=== PATIENT | male | born 1955 | race Caucasian/White ===

== ENCOUNTER 2017-04-22 20:30 | Outpatient (CLI) | payer BC | END 2017-04-22 20:31 | disposition home or self-care (01) | LOC: SLEEPLAB 20:30 | PROVIDERS: ATTEND Internal Medicine Pulmonary Disease | DX: G47.33 Obstructive sleep apnea (adult) (pediatric) (principal) | CPT/HCPCS: 95811 ==

== ENCOUNTER 2018-02-02 16:39 | Day surgery (SDC) | payer BC ==
[2018-02-02] MEDS ORDERED: CEFAZOLIN 1 GM in Sodium Chloride 0.9% 100 ML IVPB SCH (17:00)
[2018-02-02] MEDS ORDERED: CEFAZOLIN 1 GM VIAL ONE (17:34)
[2018-02-02] MEDS ORDERED: Sodium Chloride 0.9% 100 ML ONE (17:34)
[2018-02-02] MEDS ORDERED: Fentanyl 100 MCG/2 ML VIAL ONE ×2 (17:47)
[2018-02-02 17:48] LABS: #Eosinphils 0.2 thou/uL (0.0-0.7); #Monocytes 0.6 thou/uL (0.11-0.59); #Neutrophils 6.8 thou/uL (1.40-6.50); %Basophils 0.5 % (0.0-1.0); %Lymphocytes 11.7 % (21.0-51.0); %Monocytes 7.1 % (0.0-10.0); %Neutrophils 78.7 % (42.0-75.0); Hemoglobin 13.6 g/dL (14.0-18.0); Mean Corpuscular HGB CONC 35.1 g/dL (32.0-36.0); Mean Corpuscular Hemoglobin 36.5 pg (27.0-31.0); Mean Platelet Volume 6.6 fL (7.4-10.4); Platelet Count 238 thou/uL (130-400); RBC Distribution Width 11.7 % (11.5-14.5); Red Blood Cell (RBC) Count 3.73 mill/uL (4.70-6.10); White Blood Cell (WBC) Count 8.7 thou/uL (4.8-10.8)
[2018-02-02 17:54] LABS: INR-International Normal Ratio 1.3; PTT 41.6 SEC (22.9-36.1); Prothrombin Time 15.9 SEC (12.0-14.7)
[2018-02-02] MEDS ORDERED: Iothalamate Meglumine 60% 50 ML VIAL FS ONE (17:55)
[2018-02-02 18:09] LABS: Anion Gap 17 mmol/L (10-20); BUN (Urea Nitrogen) 52 mg/dL (8.4-25.7); Calc. Creatinine Clearance 0 mL/min (70-130); Calcium 9.7 mg/dL (7.8-10.44); Carbon Dioxide 17 mmol/L (22-29); Chloride 111 mmol/L (98-107); Estimated GFR-MDRD 12; Glucose 102 mg/dL (70-105); Potassium 4.8 mmol/L (3.5-5.1); Sodium 140 mmol/L (136-145)
--- NOTE | 2018-02-02 19:02 | RAD ---
RETROGRADE IVP 02/02/18 COMPARISON: 03/26/13. HISTORY: Cystoscopy. Previous left kidney stone. FINDINGS/IMPRESSION: Multiple limited intraoperative fluoroscopic views from retrograde IVP were submitted for interpretat ion. The initial image shows contrast in the left renal collecting system. No obvious calcification p rojects over the left kidney. The second image shows radiopaque material overlying the kidney which l ikely represents contrast. Eventually, a double-J ureteral stent is placed which appears in good posi tion. POS: [facility]
--- NOTE | 2018-02-03 02:14 | OP ---
DATE OF PROCEDURE: 02/02/2018 PREOPERATIVE DIAGNOSIS: Left renal failure. POSTOPERATIVE DIAGNOSIS: Left renal failure. PROCEDURE PERFORMED: Cystoscopy, left retrograde, left stents. SURGEON: Gilbert Marsh M.D. ANESTHESIA: General. ESTIMATED BLOOD LOSS: Not recorded. FINDINGS: He had a short wide caliber stricture of the bulb easily pass a 22-Japanese sheath. He had a moderately large prostate gland. The bladder was free of tumor, foreign body, or stone. There was no efflux in the left ureteral orifice. There was obstructing radiolucent stone in the proximal lef t ureter, a normal ureter distal to it. He was hydronephrotic above it. The urine was drained from this initially was about 20 mL of very dark bloody urine which then cleared with a fairly brisk hydro nephrotic drip. DRAINS PLACED: A 4.8 x 26 cm double-J stent. OPERATIVE TECHNIQUE: Obtained written and verbal consent from the patient after receiving a lower th an normal dose of IV Ancef because of his creatinine being 4.86. He was taken to the operating suite . He was placed in supine position on the treatment table. PlexiPulses were placed on his lower ext remities and turned on. He was given a general anesthetic and an oral intubation. He was then place d in the dorsal lithotomy position, sterilely prepped and draped. The fluoroscopy unit was brought o samantha him and he was positioned so as we can look at the left side of the abdomen from pelvis up to the ribs. He then underwent cystoscopy with a 22-Japanese sheath. This was well lubricated and passed un ab direct vision with 30-degree lens, video camera and monitor through the male urethra into the uri nary bladder with the findings above. The bladder was filled and emptied a couple of times and exami bar with both a 30 and a 70 degree lens. A 5 Japanese Pollack catheter was brought in and flushed with contrast half and half. It was placed about a centimeter into the left ureteral orifice and contras t was injected in a retrograde manner showing a normal distal ureter up to the proximal ureter where there was obstruction noted and the radiolucency when we placed the open-ended catheter up adjacent t o it. We were able to get contrast to go by it and were able to get a 0.038 guidewire to go by it. It was a little bit difficult getting the 5-Japanese Pollack catheter go by this, but was able to get i t by and then removed the wire and drained about maybe 25 mL of very dark bloody urine. It had no od or to it and was sent off for culture. We then were able to inject some contrast up in this system, which filled it out for as it was hydronephrotic. We replaced the guidewire, removed the open-ended catheter. We elected to go with a 4.8 double-J stent because of the difficulty in getting a 5-Japanese Pollack, past the stone, and I did not think I could get a 6-Japanese stent in. Wwe were able to fair ly easily get the 4.8 stent by the stone into the area of the renal pelvis. We removed the wire leav ing the proximal end of the stent coiled in the renal pelvis and distal stent coiled in the bladder d raining a slightly bloody urine. At this point, the patient's bladder was emptied. The instruments were removed. He was taken out of the dorsal lithotomy position and he was awakened and extubated an d taken by ricardo to recovery room.
== END 2018-02-02 20:30 | disposition home or self-care (01) ==
LOC: SDC 16:39
PROVIDERS: ATTEND Urology
PROC: 0T778DZ Dilation of Left Ureter with Intraluminal Device, Via Natural or Artificial Opening Endoscopic (ICD-10-PCS; principal; 2018-02-02)
DX: N13.2 Hydronephrosis with renal and ureteral calculous obstruction (principal); I12.9 Hypertensive chronic kidney disease with stage 1 through stage 4 chronic kidney disease, or unspecified chronic kidney disease; E11.22 Type 2 diabetes mellitus with diabetic chronic kidney disease; N18.9 Chronic kidney disease, unspecified; N40.0 Benign prostatic hyperplasia without lower urinary tract symptoms; E78.00 Pure hypercholesterolemia, unspecified; Z98.890 Other specified postprocedural states
CPT/HCPCS: 36415; 36416; 74420; 80048; 85025; 85610; 85730; 87070; 87205; C1758; J0690; J3010; J7050; Q9961

== ENCOUNTER 2018-02-08 07:11 | Day surgery (SDC) | payer BC ==
[2018-02-07 14:32] VITALS: BMI 38.9
[2018-02-08] MEDS ORDERED: CEFAZOLIN 1 GM VIAL ONE (07:50)
[2018-02-08] MEDS ORDERED: Sodium Chloride 0.9% 100 ML ONE (07:50)
[2018-02-08 08:07] LABS: Platelet Count 255 thou/uL (130-400)
[2018-02-08 08:17] LABS: INR-International Normal Ratio 1.2; Prothrombin Time 15.6 SEC (12.0-14.7)
[2018-02-08 08:18] LABS: PTT 38.6 SEC (22.9-36.1)
[2018-02-08 08:27] LABS: Anion Gap 13 mmol/L (10-20); BUN (Urea Nitrogen) 33 mg/dL (8.4-25.7); Calc. Creatinine Clearance 71 mL/min (70-130); Calcium 9.5 mg/dL (7.8-10.44); Carbon Dioxide 24 mmol/L (22-29); Chloride 107 mmol/L (98-107); Estimated GFR-MDRD 30; Glucose 190 mg/dL (70-105); Potassium 4.6 mmol/L (3.5-5.1); Sodium 139 mmol/L (136-145)
[2018-02-08] MEDS ORDERED: Iothalamate Meglumine 60% 50 ML VIAL FS ONE (08:36)
[2018-02-08] MEDS ORDERED: Fentanyl 100 MCG/2 ML VIAL ONE (08:48)
[2018-02-08] MEDS ORDERED: Ondansetron HCl/PF 4 MG/2 ML Vial ONE (09:52)
[2018-02-08] MEDS ORDERED: PROPOFOL 200 MG/20 ML VIAL ONE (09:52)
[2018-02-08] MEDS ORDERED: Dexamethasone 20 MG/5 ML VIAL ONE (09:52)
--- NOTE | 2018-02-08 12:17 | OP ---
DATE OF PROCEDURE: 02/08/2018 PREOPERATIVE DIAGNOSES: Left renal stone and left stent. POSTOPERATIVE DIAGNOSES: Left renal stone and left stent. PROCEDURE PERFORMED: Cysto, discontinue left stent, left retrograde pyelogram, left ESWL and stent r eplacement. SURGEON: Dr. Gilbert Marsh. ANESTHETIC: General. ESTIMATED BLOOD LOSS: Not recorded. FINDINGS: He has between an 8 and 1 cm stone that is now in the left upper pole calyceal system. It initially presented at the [facility] when he presented with pain and increasing creatinine. He had a sten t placed last week because of the rise of creatinine to almost 5. It was a radiolucent stone so we h ad to outline it with contrast. He was treated with total of 2500 shocks, 500 at level 5, 2000 at le fredy 4. A stent was replaced at the end, a 4.8 [place] x 26 cm with a string left exiting the urethral meatus. OPERATIVE TECHNIQUE: After documenting normal preoperative blood work and platelet function assay, mahesh schwartz was taken to the operating suite. He was placed in the supine position on the treatment table. Pl exiPulses were placed on his lower extremities and turned on. He was given a general anesthetic, ora l intubation, placed in the dorsal supine position and sterilely prepped and draped. Cystoscopy was performed with a 20-Citizen [place] sheath. This was well lubricated and passed under direct vision through t he male urethra and into the urinary bladder with the aid of a 30-degree lens, a video camera and mon itor. The bladder was examined with 30 and 70 lens. There was no abnormality noted except for the d istal end of the double-J stent being in the bladder. This was grasped with pair of flexible graspin g forceps, brought out to the urethral meatus and a guidewire was fed up, and it was removed over the guidewire. A 5 Citizen [place] Pollack catheter was advanced over the guidewire and the guidewire was remove d and contrast was injected. The stone was no longer in the ureter, but was found to be in the upper pole calyceal system. We then went ahead and passed a Nolasco catheter into the bladder, hooked up to a drainage bag. Blew up his balloon with 10 mL and secured the 5-[place]izen [place] Pollack catheter with a ilana k stitch. He was then returned to the supine position, coupled to the lithotripsy unit. The stone w as placed in treatment focal point. Periodically we injected a little contrast to reoutline the ston e. Shockwave therapy was commenced at a low kV and after a couple 100 shocks, a 5 minute pause was g iven. The kV was then slowly increased to 4 and we stayed on this until about 1500 shocks and then r aised the kV to 5 and then brought it back down to 4, 2000 shocks for the remaining 500. It did appe ar the stone had been fragmented well and spreading out and changing its shape we injected contrast. At the end of this part of the procedure he was returned to the supine position. The ureteral stent and Nolasco catheter removed. Cystoscopy was again performed with a 20 Citizen [place] sheath, well lubricated through the male urethra and into the urinary bladder with aid of a 30-degree lens. A 0.038 guidewi re was advanced up the left ureter. There was some blood as well as a number of stone fragments alre marissa in the floor of the bladder. A 5 [place] Pollack catheter was placed over the guidewire and about 5 mL of contrast were used to fill out the collecting system. Once this was visible the wire was re placed. The open-ended catheter, the open-ended catheter was removed and then the stent was placed o samantha the wire, pushing it up into place with aid of a pusher so its proximal end coiled in the renal p nathan and its distal end coiled in the bladder when the wire was removed. At this point, the patient was awakened and extubated and taken by stretcher to the recovery room.
== END 2018-02-08 12:15 | disposition home or self-care (01) ==
LOC: SDC 07:11
PROVIDERS: ATTEND Urology
PROC: 0T778DZ Dilation of Left Ureter with Intraluminal Device, Via Natural or Artificial Opening Endoscopic (ICD-10-PCS; principal; 2018-02-08)
PROC: 0TF4XZZ Fragmentation in Left Kidney Pelvis, External Approach (ICD-10-PCS; principal; 2018-02-08)
DX: N20.2 Calculus of kidney with calculus of ureter (principal); I12.9 Hypertensive chronic kidney disease with stage 1 through stage 4 chronic kidney disease, or unspecified chronic kidney disease; E11.22 Type 2 diabetes mellitus with diabetic chronic kidney disease; N18.9 Chronic kidney disease, unspecified; Z79.899 Other long term (current) drug therapy
CPT/HCPCS: 36415; 80048; 85576; 85610; 85730; C1758; J0690; J1100; J2405; J2704; J3010; J7050; Q9961

== ENCOUNTER 2018-02-17 07:50 | Inpatient (IN) | payer BC ==
[2018-02-17 08:27] LABS: #Basophils 0.1 thou/uL (0.0-0.2); #Eosinphils 0.1 thou/uL (0.0-0.7); #Lymphocytes 0.5 thou/uL (1.20-3.40); #Monocytes 1.5 thou/uL (0.11-0.59); #Neutrophils 15.1 thou/uL (1.40-6.50); %Basophils 0.5 % (0.0-1.0); %Eosinophils 0.4 % (0.0-10.0); %Lymphocytes 3.1 % (21.0-51.0); %Monocytes 8.8 % (0.0-10.0); %Neutrophils 87.2 % (42.0-75.0); Hemoglobin 13.2 g/dL (14.0-18.0); Mean Corpuscular HGB CONC 34.4 g/dL (32.0-36.0); Mean Platelet Volume 7.4 fL (7.4-10.4); Platelet Count 149 thou/uL (130-400); RBC Distribution Width 11.7 % (11.5-14.5); Red Blood Cell (RBC) Count 3.78 mill/uL (4.70-6.10); White Blood Cell (WBC) Count 17.3 thou/uL (4.8-10.8)
[2018-02-17 08:45] LABS: ALT (SGPT) 25 U/L (8-55); AST (SGOT) 16 U/L (5-34); Albumin 3.9 g/dL (3.5-5.0); Alkaline Phosphatase 63 U/L (40-150); Anion Gap 15 mmol/L (10-20); BUN (Urea Nitrogen) 32 mg/dL (8.4-25.7); Bilirubin, Total 1.7 mg/dL (0.2-1.2); Calc. Creatinine Clearance 0 mL/min (70-130); Calcium 9.1 mg/dL (7.8-10.44); Carbon Dioxide 20 mmol/L (22-29); Chloride 105 mmol/L (98-107); Estimated GFR-MDRD 29; Globulin 3.4 g/dL (2.4-3.5); Glucose 231 mg/dL (70-105); Potassium 4.4 mmol/L (3.5-5.1); Protein, Total 7.3 g/dL (6.0-8.3); Sodium 136 mmol/L (136-145)
--- NOTE | 2018-02-17 09:29 | RAD ---
PORTABLE CHEST 1 VIEW: Date: 02/17/18 Time: 0848 hours HISTORY: Fever. Generalized weakness. FINDINGS: The heart size is borderline. The lungs are expanded without lobar consolidation, pneumothoraces, fra nk pulmonary edema, or pleural effusions. IMPRESSION: No acute process. POS: [facility]
--- NOTE | 2018-02-17 09:31 | RAD ---
ABDOMEN 1 VIEW: Date: 02/17/18 HISTORY: 62-year-old male with history of fever and generalized weakness. FINDINGS: Left ureteral stent in place. Minimal gas and fecal material in the colon. No overt large or small gunner wel obstruction. Exam somewhat limited technically. IMPRESSION: Left ureteral stent. No overt bowel obstruction. No acute calculus, although calculus may well be obs cured by gas and fecal material in the colon, and some minimal air in the small bowel. POS: [facility]
[2018-02-17] MEDS ORDERED: cefTRIAXone\\ROCEPHIN 2 GM VIAL ONE (10:57)
--- NOTE | 2018-02-17 11:05 | CT ---
CT OF ABDOMEN AND PELVIS PERFORMED WITHOUT CONTRAST ENHANCEMENT: HISTORY: Fever and chills. History of left ureteral stent placement for kidney stones. Occasional left flank pain. FINDINGS: The lung bases show subsegmental atelectatic change in the left base, The liver and spleen show no focal abnormalities. The liver measures 23 cm in length. Spleen is ana lilia roximately 13 cm. Pancreas shows no mass or ductal dilatation. The gallbladder is mildly distended. There is some mild perinephric fat stranding involving the right kidney. However, in reviewing a study, this has a similar appearance on that examination. No right renal calculi. There is a lower pole left renal calculus measuring 7-8 mm. A left ureteral stent is in place. It is in good p osition. I do not see any obstruction or ureteral calculus. A small exophytic density involving the lower pole of the left kidney is not definitively assessed. It measures less than 1 cm in size. It does appear similar to the prior exam and may represent a small hemorrhagic cyst. There is no signi ficant periaortic or mesenteric adenopathy. Postoperative changes of the stomach are present. CT OF PELVIS PERFORMED WITHOUT CONTRAST ENHANCEMENT: Appendix is normal. The prostate is slightly prominent. Small pelvic lymph nodes do not appear sign ificantly enlarged. Review of osseous structures shows some mild arthritic changes of the spine. IMPRESSION: 1. Borderline liver and spleen size. The gallbladder is mildly distended but no stones identified. 2. A 7-8 mm nonobstructing lower pole left renal calculus. Left ureteral stent appears to be in goo d position. No signs of obstruction. 3. Sigmoid diverticulosis. 4. Postoperative changes of the stomach. POS: [facility]
[2018-02-17 11:11] LABS: Bilirubin Negative (Negative); Blood, Urine Large (Negative); Clarity CLOUDY (Clear); Glucose, Urine (Dipstick) Negative (Negative); Leukocyte Large (Negative); Nitrite Negative (Negative); Protein, Urine (Dipstick) 100 mg/dL (Neg-Trace); Urobilinogen 0.2 mg/dL (0.2-1.0); pH, Urine 5.5 (5.0-9.0)
[2018-02-17 11:14] LABS: Bacteria/HPF 4+ HPF (None Seen); Hyaline Casts/LPF 7-10 HYALINE CAST LPF (0-3 Hyaline); Squamous Epithelial None Seen HPF (0-3)
[2018-02-17 12:42] LABS: Lactic Acid 2.3 mmol/L (0.5-2.2)
--- NOTE | 2018-02-17 12:54 | HP ---
PRIMARY CARE PHYSICIAN: [facility] call admission. REASON FOR ADMISSION: Sepsis. HISTORY OF PRESENT ILLNESS: A 62-year-old male who has underlying history of hypertension, diabetes type 2, morbid obesity, dyslipidemia, who was recently underwent cystoscopy and left ureteral stent p lacement by Dr. Gilbert Marsh on 02/08/2018. This patient has a history of a left renal stone which was treated with a left ESWL therapy, previous left ureteral stent was removed and new stent was meghan zack. After that day procedure, the patient was discharged home. The patient was intermittently havi ng left-sided flank pain. He was doing great. He did not have any fever or chills up until last nig ht when he started having chills and fever. He was having more pain on the left side and that is why he came to emergency room for evaluation. In the emergency room, he was found with a temperature of 101.3. He was tachycardic with pulse 129. His blood pressure remained stable at 118/73. After cullen atment in the emergency room with 4 liters IV fluid, vancomycin, and Rocephin, the patient's pulse im proved to 92 and his blood pressure improved to 118/73. He was feeling much better. Dr. Maximo harding was notified from emergency room and he recommended to admit under Medicine Service. The patient denies any hematuria. He denies any dysuria. He denies any increased frequency. He den ies any abdominal pain, constipation, or diarrhea. He denies any dizziness or syncope. He denies an y cough, upper respiratory or lower respiratory symptoms. REVIEW OF SYSTEMS: Please see my HPI for pertinent positive and negative. All other review of syste m reviewed and negative except as mentioned in the HPI. Constitutional: Weight loss or gain, ability to conduct usual activities. Skin: Rash, itching. Eyes: Double vision, pain. ENT/Mouth: Nose bleeding, neck stiffness, pain, tenderness. Cardiovascular: Palpitations, dyspnea on exertion, orthopnea. Respiratory: Shortness of breath, wheezing, cough, hemoptysis, fever or night sweats. Gastrointestinal: Poor appetite, abdominal pain, heartburn, nausea, vomiting, constipation, or diarrhea. Genitourinary: Urgency, frequency, dysuria, nocturia. Musculoskeletal: Pain, swelling. Neurologic/Psychiatric: Anxiety, depression. Allergy/Immunologic: Skin rash, bleeding tendency. PAST MEDICAL HISTORY: Morbid obesity, hypertension, diabetes type 2, chronic kidney disease stage 4, nephrolithiasis. PAST SURGICAL HISTORY: Gastric band surgery and reversal, gastric sleeve surgery, cystoscopy and lef t ureteral stent removal as well as ESWL therapy and the left ureteral stent placement. PAST PSYCHIATRIC HISTORY: Reviewed and negative. SOCIAL HISTORY: The patient is and lives at home with his . No history of tobacco, alco hol or illicit drug abuse. FAMILY HISTORY: Diabetes common among several family members. No premature coronary artery disease, stroke or cancer in his family. ALLERGIES: No known drug allergy. CURRENT HOME MEDICATIONS: Tylenol #3 1-2 tablets q.6 hourly p.r.n., potassium citrate 10 mEq p.o. tw ice daily, losartan 25 mg p.o. daily, Macrobid 100 mg p.o. daily, Crestor 5 mg p.o. at bedtime, clona zepam 2 mg 2 tablets at bedtime. EMERGENCY ROOM COURSE: The patient is given 4 liters of IV fluid and vancomycin and Rocephin. CT of the abdomen and pelvis showing borderline liver and spleen, gallbladder distended 7-8 mm nonobs tructive lower pole left renal calculus, left ureteral stent in place. No obstruction, sigmoid diver ticulosis, postoperative changes of the stomach. SIGNIFICANT LABORATORY DATA: CBC: WBC 17.3, hemoglobin 13.2, platelet 149, MCV 102. BMP: Sodium 1 36, potassium 4.4, chloride 105, carbon dioxide 20, BUN 32, creatinine 2.32, glucose 231, calcium 9.1 . LFT: AST 16, ALT 25, alkaline phosphatase 63, albumin 3.9, lactic acid 3.7. Urinalysis suggestiv e of urinary tract infection. ASSESSMENT AND PLAN: 1. Complicated urinary tract infection. This patient has sepsis. He has leukocytosis, high grade f ever, tachycardia, meets sepsis criteria. Source of infection is urinary tract. He has a recent ins trumentation with ESWL therapy and stent placement. His urinalysis suggestive of urinary tract infec tion. Most likely this patient has complicated urinary tract infection. Urine culture and blood cul ture obtained in the emergency room. We will continue with broad-spectrum antibiotic therapy with va ncomycin and cefepime. I spoke with Dr. Marsh about this patient's admission. This patient will ne ed IV antibiotic therapy and follow up on culture result and then he will decide about removal of aubree nt. 2. Sepsis with lactic acidosis. The patient's blood pressure is stable and improved after 4 liters of fluid and his tachycardia also improved. At this point, the patient will require telemetry admiss ion for close monitoring. The patient is already on broad-spectrum antibiotic therapy and we will fo llow up on culture result. We will continue with IV fluid as well. 3. Diabetes type 2. We will continue with insulin as per sliding scale per protocol. Diabetic diet will be given. 4. Hypertension. We will continue losartan 25 mg p.o. daily when blood pressure permits. At this p oint, we will hold on this therapy because of relatively low blood pressure. 5. Dyslipidemia. We will continue Crestor 5 mg p.o. at bedtime. 6. Anxiety and depression. We will continue clonazepam 2 mg p.o. at bedtime. 7. Morbid obesity with dietary education given. Healthy lifestyle measures discussed with the patie nt. 8. Chronic kidney disease stage 4. The patient will be given IV fluid and we will monitor renal fun ction. 9. Macrocytosis. We will start folic acid and vitamin B12 therapy. 10. Deep venous thrombosis prophylaxis. Lovenox 30 mg subcutaneously daily. 11. Gastrointestinal prophylaxis, Pepcid 20 mg p.o. daily. CODE STATUS: The patient is FULL CODE. The patient's is surrogate decision maker. Disposition plan based on clinical course. We are expecting patient's stay in hospital more than 2 m idnights. Plan of care discussed with the patient and patient's at bedside in the emergency francisco arango
[2018-02-17 13:43] VITALS: BMI 39.6
[2018-02-17] MEDS ORDERED: Sodium Chloride 0.65% Nasal 44 ML BOT EA NARE PRN (14:06)
[2018-02-17] MEDS ORDERED: Milk Of Magnesia 30 ML UDCUP PO PRN (14:06)
[2018-02-17] MEDS ORDERED: Mag-Al 1200 mg/1200 mg/30 ML UDCUP PO PRN (14:06)
[2018-02-17] MEDS ORDERED: Dextrose 5% in Water 1,000 ML IV PRN (14:06)
[2018-02-17] MEDS ORDERED: Dextrose 50% Abboject 50 ML SYRINGE SLOW IVP PRN (14:06)
[2018-02-17] MEDS ORDERED: Eucerin (Mineral Oil/Petrolatum,White) 30 gm Jar TOP PRN (14:06)
[2018-02-17] MEDS ORDERED: Chloraseptic Spray 180 ml Bottle PO PRN (14:06)
[2018-02-17] MEDS ORDERED: hydrALAZINE 20 MG/ML VIAL SLOW IVP PRN (14:06)
[2018-02-17] MEDS ORDERED: Ondansetron ODT 4 MG TAB PO PRN (14:06)
[2018-02-17] MEDS ORDERED: Ondansetron HCl/PF 4 MG/2 ML Vial IVP PRN (14:06)
[2018-02-17] MEDS ORDERED: Diabetic Tussin 200 MG/10 ML UDCUP PO PRN (14:06)
[2018-02-17] MEDS ORDERED: Zolpidem Tartrate 5 MG TAB PO PRN (14:06)
[2018-02-17] MEDS ORDERED: Loratadine 10 MG TAB PO PRN (14:06)
[2018-02-17] MEDS ORDERED: Artificial Tears 18 DROP/0.9 ML EA EYE PRN (14:06)
[2018-02-17] MEDS ORDERED: Loperamide HCl 2 MG CAP PO PRN (14:06)
[2018-02-17] MEDS ORDERED: Senokot 8.6 MG TAB PO PRN (14:06)
[2018-02-17] MEDS: Sodium Chloride 0.9% 1,000 ML IV SCH ×2 (15:28→15:29)
[2018-02-17] MEDS: Cefepime 2 GM in Sodium Chloride 0.9% 100 ML IVPB SCH (15:29)
[2018-02-17] MEDS: Acetaminophen 325 MG TAB PO PRN ×2 (16:16→21:30)
[2018-02-17] MEDS: HumaLOG 300 UNITS/3 ML VIAL SC PRN ×2 (17:39→21:32)
--- NOTE | 2018-02-17 20:47 | CON ---
DATE OF CONSULTATION: 02/17/2018 HISTORY OF PRESENT ILLNESS: This is a 62-year-old white male I saw today 02/17/2018 in the emergency center prior to his admission to the hospital. He is a patient that had undergone a cystoscopy, lef t stent placement and then a left ESWL. The ESWL was done on the of this month. His creatinine had gone up dramatically when he had a proximal left ureteral stone and that is why the stent had be en placed on the . He has uric acid stones. Unfortunately, the radiolucent and KUBs do not real ly show them. He came in today to the ER because last night he started having fevers and chills. No t feeling well. In the emergency center, I believe he was afebrile. His white count was 17.3. His creatinine was 2.32, which is about stable for him. His creatinine was almost 5 before stent was put in and his creatinine a couple years ago was 2.6. He had blood cultures and urine cultures done. H is urinalysis showed greater than 50 white cells, 4+ bacteria, 7-10 red cells. He was started on cef epime and vancomycin. He also did receive Rocephin in the emergency center. His lactic acid was als o elevated. He had a chest x-ray that was clear. He had a noncontrast CT scan done that showed the stent to be in good position. I did not see any evidence of any stones in the ureter. I saw nothing to suggest an obvious renal abscess. He had a stone that appear smaller than the stone that was cullen ated. There were some stone fragments in the lower pole of the left kidney. PAST MEDICAL HISTORY: He has diabetes. He has chronic renal insufficiency. He has obesity, hyperte nsion. PAST SURGICAL HISTORY: Includes gastric procedure for weight loss with reversal and then gastric sle christopher surgery. He has had ESWLs before. ALLERGIES: He has no known drug allergies. MEDICATIONS: Had been taking Macrobid up until the time of him getting a fever, not taken any today. He also has been taking Tylenol No. 3 since the surgery off and on. He is on potassium citrate to help prevent uric acid stones. He is on losartan, Crestor, clonazepam. PHYSICAL EXAMINATION: GENERAL: He does not have any flank tenderness. ABDOMEN: Obese but nontender and soft. GENITOURINARY: Penis is without lesions. Testicles descended. There is nothing to suggest epididym itis. A prostate exam was not done. EXTREMITIES: Lower extremities reveal no clubbing, cyanosis or edema. He has no discomfort in the c ast to suggest a deep vein thrombosis. IMPRESSION: Fever with likely pyelonephritis secondary to the stent. It does not appear suggestive that the stent is not draining. He has had culture set up for both blood and urine. He has been sta rted empirically on antibiotics. We will adjust the antibiotics as his cultures return. I think wit h that stone in the lower pole of the kidney now that we can probably look at removing that stent in the next couple of days after he defervesces. Should his elevated white count persists or should he clinically worsen, then we can do a contrast study be sure he has not developed a renal abscess. I w ill follow along with you.
[2018-02-17] MEDS: Rosuvastatin 5 MG TAB PO SCH (21:30)
[2018-02-17] MEDS ORDERED: clonazePAM 1 MG TAB PO SCH (21:45)
[2018-02-18] MEDS: Sodium Chloride 0.9% 1,000 ML IV SCH ×5 (00:48→22:19)
[2018-02-18] MEDS: Cefepime 2 GM in Sodium Chloride 0.9% 100 ML IVPB SCH ×2 (02:26→15:56)
[2018-02-18] MEDS: Acetaminophen 325 MG TAB PO PRN ×2 (03:55→16:09)
[2018-02-18 05:36] LABS: Lactic Acid 1.7 mmol/L (0.5-2.2)
[2018-02-18 05:50] LABS: ALT (SGPT) 18 U/L (8-55); AST (SGOT) 17 U/L (5-34); Albumin 3.1 g/dL (3.5-5.0); Alkaline Phosphatase 63 U/L (40-150); Anion Gap 12 mmol/L (10-20); BUN (Urea Nitrogen) 30 mg/dL (8.4-25.7); Bilirubin, Total 0.7 mg/dL (0.2-1.2); Calc. Creatinine Clearance 74 mL/min (70-130); Calcium 7.5 mg/dL (7.8-10.44); Carbon Dioxide 18 mmol/L (22-29); Chloride 107 mmol/L (98-107); Estimated GFR-MDRD 31; Glucose 312 mg/dL (70-105); Potassium 4.2 mmol/L (3.5-5.1); Protein, Total 6.1 g/dL (6.0-8.3); Sodium 133 mmol/L (136-145)
[2018-02-18 07:33] LABS: #Eosinphils 0.2 thou/uL (0.0-0.7); #Monocytes 1.2 thou/uL (0.11-0.59); #Neutrophils 12.8 thou/uL (1.40-6.50); %Basophils 0.1 % (0.0-1.0); %Eosinophils 1.1 % (0.0-10.0); %Lymphocytes 6.7 % (21.0-51.0); %Monocytes 7.6 % (0.0-10.0); %Neutrophils 84.5 % (42.0-75.0); Hemoglobin 10.8 g/dL (14.0-18.0); MDiff Complete? YES; Macrocytosis SLIGHT = 6-15 cells (100X) (0-5/hpf); Mean Corpuscular HGB CONC 33.5 g/dL (32.0-36.0); Mean Corpuscular Hemoglobin 34.5 pg (27.0-31.0); Mean Platelet Volume 7.3 fL (7.4-10.4); PLT Morphology Comment Appears Decreased; Platelet Count 115 thou/uL (130-400); RBC Distribution Width 11.8 % (11.5-14.5); Red Blood Cell (RBC) Count 3.14 mill/uL (4.70-6.10); White Blood Cell (WBC) Count 15.1 thou/uL (4.8-10.8)
[2018-02-18] MEDS: Enoxaparin Sodium 30 MG/0.3 ML SYRINGE SC SCH (09:08)
[2018-02-18] MEDS: Saccharomyces boulardii 250 MG CAP PO SCH (09:09)
[2018-02-18] MEDS: Cyanocobalamin (Vitamin B-12) 1,000 MCG TAB PO SCH (09:09)
[2018-02-18] MEDS: Tamsulosin HCl 0.4 MG CAP PO SCH (09:09)
[2018-02-18] MEDS: Folic Acid 1 MG TAB PO SCH (09:09)
[2018-02-18] MEDS: Famotidine 20 MG TAB PO SCH (09:09)
[2018-02-18] MEDS: HYDROcodone/Acetaminophen 5/325 mg Tablet PO PRN ×3 (09:10→21:56)
--- NOTE | 2018-02-18 10:02 | PDOC.PN ---
- Subjective Encounter Start Date: 02/18/18 Encounter Start Time: 07:30 -: old records requested/rev pt has left side flank pain, has fever, - Objective Resuscitation Status: Resuscitation Status FULL:Full Resuscitation MAR Reviewed: Yes Vital Signs & Weight: Vital Signs (12 hours) Temp Pulse Resp BP Pulse Ox 02/18/18 07:16 98.2 F 83 18 139/61 97 02/18/18 04:20 99.4 F 02/18/18 03:35 100.8 F H 94 18 121/58 L 97 02/18/18 00:00 99.7 F H 89 18 107/58 L 94 L Weight Weight 329 lb 9.6 oz I&O: 02/17/18 02/18/18 02/19/18 06:59 06:59 06:59 Intake Total 2718 Output Total 1994 Balance 723 Result Diagrams: 02/18/18 04:37 02/18/18 04:37 Additional Labs: Accuchecks 02/18/18 02/17/18 02/17/18 05:39 20:49 16:36 POC Glucose 312 H 322 H 348 H EKG Reviewed by me: Yes (nsr) Phys Exam - Physical Examination Constitutional: NAD HEENT: PERRLA, moist MMs, sclera anicteric Neck: no JVD, supple Respiratory: no wheezing, no rales, no rhonchi Cardiovascular: RRR, no significant murmur, no rub Gastrointestinal: soft, non-tender, no distention, positive bowel sounds Musculoskeletal: no edema, pulses present Neurological: non-focal, normal sensation, moves all 4 limbs Psychiatric: normal affect, A&O x 3 Skin: no rash, normal turgor Dx/Plan (1) Acute worsening of stage 3 chronic kidney disease Code(s): N18.3 - CHRONIC KIDNEY DISEASE, STAGE 3 (MODERATE) Status: Acute (2) Complicated UTI (urinary tract infection) Code(s): N39.0 - URINARY TRACT INFECTION, SITE NOT SPECIFIED Status: Acute (3) Lactic acidosis Code(s): E87.2 - ACIDOSIS Status: Acute (4) Sepsis Code(s): A41.9 - SEPSIS, UNSPECIFIED ORGANISM Status: Acute (5) Thrombocytopenia Code(s): D69.6 - THROMBOCYTOPENIA, UNSPECIFIED Status: Acute (6) Diabetes type 2, controlled Code(s): E11.9 - TYPE 2 DIABETES MELLITUS WITHOUT COMPLICATIONS Status: Chronic (7) Hypertension Code(s): I10 - ESSENTIAL (PRIMARY) HYPERTENSION Status: Chronic (8) Macrocytic anemia Code(s): D53.9 - NUTRITIONAL ANEMIA, UNSPECIFIED Status: Chronic (9) Morbid obesity with BMI of 40.0-44.9, adult Code(s): E66.01 - MORBID (SEVERE) OBESITY DUE TO EXCESS CALORIES; Z68.41 - BODY MASS INDEX (BMI) 40.0-44.9, ADULT Status: Chronic (10) [place] on CPAP Code(s): G47.33 - OBSTRUCTIVE SLEEP APNEA (ADULT) (PEDIATRIC); Z99.89 - DEPENDENCE ON OTHER ENABLING MACHINES AND DEVICES Status: Chronic - Plan cont current plan of care, continue antibiotics * continue vancomycin, cefepime and levaquin * follow on culture result * urology on case * medication reviewed as below * symptomatic treatment * continue IVF * start humalog 10 unit achs * some improvement seen so far Review of Systems - Review of Systems Constitutional: fever. negative: chills, sweats, weakness, malaise, other ENT: negative: Ear Pain, Ear Discharge, Nose Pain, Nose Discharge, Nose Congestion, Mouth Pain, Mouth Swelling, Throat Pain, Throat Swelling, Other Respiratory: negative: Cough, Dry, Shortness of Breath, Hemoptysis, SOB with Excertion, Pleuritic Pain, Sputum, Wheezing Cardiovascular: negative: chest pain, palpitations, orthopnea, paroxysmal nocturnal dyspnea, edema, light headedness, other Gastrointestinal: negative: Nausea, Vomiting, Abdominal Pain, Diarrhea, Constipation, Melena, Hematochezia, Other Genitourinary: negative: Dysuria, Frequency, Incontinence, Hematuria, Retention , Other Musculoskeletal: negative: Neck Pain, Shoulder Pain, Arm Pain, Back Pain, Hand Pain, Leg Pain, Foot Pain, Other - Medications/Allergies Allergies/Adverse Reactions: Allergies Allergy/AdvReac Type Severity Reaction Status Date / Time No Known Allergies Allergy Verified 02/17/18 13:52 Medications: Current Medications Acetaminophen (Tylenol) 650 mg PO Q4H PRN PRN Reason: Headache/Fever or Pain Last Admin: 02/18/18 03:55 Dose: 650 mg Hydrocodone Bitart/Acetaminophen ([place] 5/325) 1 tab PO Q4H PRN PRN Reason: Moderate Pain (4-6) Last Admin: 02/18/18 09:10 Dose: 1 tab Al Hydroxide/Mg Hydroxide (Maalox) 30 ml PO Q6H PRN PRN Reason: Heartburn or Indigestion Alogliptin Benzoate (Alogliptin) 25 mg PO QPM [facility] Artificial Tears (Tears Naturale) 0 drop EA EYE PRN PRN PRN Reason: Dry Eyes Clonazepam (Klonopin) 4 mg PO HS [facility] Cyanocobalamin (Vitamin B-12) 1,000 mcg PO DAILY [facility] Last Admin: 02/18/18 09:09 Dose: 1,000 mcg Dextrose/Water (Dextrose 50%) 25 gm SLOW IVP PRN PRN PRN Reason: Hypoglycemia Diphenhydramine HCl (Benadryl) 25 mg PO HS [facility] Enoxaparin Sodium (Lovenox) 30 mg SC 0900 [facility] Last Admin: 02/18/18 09:08 Dose: 30 mg Famotidine (Pepcid) 20 mg PO DAILY [facility] Last Admin: 02/18/18 09:09 Dose: 20 mg Folic Acid (Folvite) 1 mg PO DAILY [facility] Last Admin: 02/18/18 09:09 Dose: 1 mg Glucagon (Glucagon) 1 mg IM PRN PRN PRN Reason: Hypoglycemia Guaifenesin (Robitussin Sf) 200 mg PO Q4H PRN PRN Reason: Cough Hydralazine HCl (Apresoline) 10 mg SLOW IVP Q4H PRN PRN Reason: Systolic BP > 180 Sodium Chloride (Normal Saline 0.9%) 1,000 mls @ 125 mls/hr IV .Q8H [facility] Last Admin: 02/18/18 00:55 Dose: 1,000 mls Cefepime HCl 2 gm/ Sodium (Chloride) 100 mls @ 200 mls/hr IVPB 0300,1500 [facility] Last Admin: 02/18/18 02:26 Dose: 100 mls Dextrose/Water (D5w) 1,000 mls @ 0 mls/hr IV .Q0M PRN PRN Reason: Hypoglycemia Vancomycin HCl 2 gm/ Sodium (Chloride) 500 mls @ 250 mls/hr IVPB 1400 [facility] Insulin Human Lispro (Humalog) 0 units SC .MODERATE SLIDING SC PRN PRN Reason: Moderate Correctional Scale Last Admin: 02/17/18 17:39 Dose: 8 unit Insulin Human Lispro (Humalog) 0 units SC .BEDTIME SLIDING SC PRN PRN Reason: Bedtime Correctional Scale Last Admin: 02/17/18 21:32 Dose: 4 unit Insulin Human Lispro (Humalog) 10 units SC ACHS [facility] Loperamide HCl (Imodium) 2 mg PO PRN PRN PRN Reason: Diarrhea/Loose Stools Loratadine (Claritin) 10 mg PO DAILYPRN PRN PRN Reason: Sinus Symptoms Magnesium Hydroxide (Milk Of Magnesium) 30 ml PO DAILYPRN PRN PRN Reason: Constipation Mineral Oil/White Petrolatum (Eucerin Cream) 0 gm TOP BIDPRN PRN PRN Reason: Dry Skin Miscellaneous Medication (Pharmacy To Dose) 1 each IVPB PRN PRN PRN Reason: Pharmacy to dose Ondansetron HCl (Zofran Odt) 4 mg PO Q6H PRN PRN Reason: Nausea/Vomiting Ondansetron HCl (Zofran) 4 mg IVP Q6H PRN PRN Reason: Nausea/Vomiting Phenol (Chloraseptic [place] 180 Ml Bot) 0 ml PO PRN PRN PRN Reason: Sore Throat Rosuvastatin Calcium (Crestor) 5 mg PO [facility] Last Admin: 02/17/18 21:30 Dose: 5 mg Saccharomyces Boulardii (Florastor) 250 mg PO DAILY [facility] Last Admin: 02/18/18 09:09 Dose: 250 mg Senna (Senokot) 2 tab PO HSPRN PRN PRN Reason: Constipation Sodium Chloride ([place] Nasal [place] 0.65%) 0 ml EA NARE QIDPRN PRN PRN Reason: Nasal Congestion Sodium Chloride (Flush - Normal Saline) 10 ml IVF Q12HR MOE Sodium Chloride (Flush - Normal Saline) 10 ml IVF PRN PRN PRN Reason: Saline Flush Tamsulosin HCl (Flomax) 0.4 mg PO DAILY [facility] Last Admin: 02/18/18 09:09 Dose: 0.4 mg Zolpidem Tartrate (Ambien) 5 mg PO HSPRN PRN PRN Reason: Insomnia
[2018-02-18] MEDS: HumaLOG 300 UNITS/3 ML VIAL SC SCH ×3 (11:01→21:57)
[2018-02-18] MEDS: HumaLOG 300 UNITS/3 ML VIAL SC PRN ×3 (11:10→22:03)
[2018-02-18 14:33] LABS: Vancomycin, Trough 5.8 ug/mL
[2018-02-18] MEDS ORDERED: Non-Formulary Item 1 EACH (Linagliptin [Tradjenta] 5 MG) PO SCH (21:00)
[2018-02-18] MEDS: Rosuvastatin 5 MG TAB PO SCH (21:56)
[2018-02-18] MEDS: diphenhydrAMINE 25 MG CAP PO SCH (21:56)
[2018-02-18] MEDS: Alogliptin 25 MG TAB PO SCH (21:56)
[2018-02-18] MEDS: clonazePAM 1 MG TAB PO SCH (21:56)
[2018-02-19] MEDS: Cefepime 2 GM in Sodium Chloride 0.9% 100 ML IVPB SCH (02:09)
[2018-02-19 05:23] LABS: #Eosinphils 0.3 thou/uL (0.0-0.7); #Lymphocytes 0.9 thou/uL (1.20-3.40); #Monocytes 0.8 thou/uL (0.11-0.59); #Neutrophils 7.9 thou/uL (1.40-6.50); %Basophils 0.1 % (0.0-1.0); %Lymphocytes 9.2 % (21.0-51.0); %Neutrophils 79.6 % (42.0-75.0); Hemoglobin 9.9 g/dL (14.0-18.0); Mean Corpuscular HGB CONC 33.6 g/dL (32.0-36.0); Mean Corpuscular Hemoglobin 34.7 pg (27.0-31.0); Mean Platelet Volume 7.8 fL (7.4-10.4); Platelet Count 115 thou/uL (130-400); RBC Distribution Width 11.7 % (11.5-14.5); Red Blood Cell (RBC) Count 2.86 mill/uL (4.70-6.10); White Blood Cell (WBC) Count 9.9 thou/uL (4.8-10.8)
[2018-02-19 05:39] LABS: Anion Gap 12 mmol/L (10-20); BUN (Urea Nitrogen) 28 mg/dL (8.4-25.7); Calc. Creatinine Clearance 79 mL/min (70-130); Carbon Dioxide 19 mmol/L (22-29); Chloride 109 mmol/L (98-107); Estimated GFR-MDRD 33; Glucose 225 mg/dL (70-105); Phosphorus 2.2 mg/dL (2.3-4.7); Potassium 3.9 mmol/L (3.5-5.1); Sodium 136 mmol/L (136-145)
[2018-02-19] MEDS: Sodium Chloride 0.9% 1,000 ML IV SCH (08:48)
[2018-02-19] MEDS: Folic Acid 1 MG TAB PO SCH (08:49)
[2018-02-19] MEDS: Cyanocobalamin (Vitamin B-12) 1,000 MCG TAB PO SCH (08:49)
[2018-02-19] MEDS: Enoxaparin Sodium 30 MG/0.3 ML SYRINGE SC SCH (08:49)
[2018-02-19] MEDS: HYDROcodone/Acetaminophen 5/325 mg Tablet PO PRN ×3 (08:49→21:30)
[2018-02-19] MEDS: Famotidine 20 MG TAB PO SCH (08:49)
[2018-02-19] MEDS: Tamsulosin HCl 0.4 MG CAP PO SCH (08:49)
[2018-02-19] MEDS: Saccharomyces boulardii 250 MG CAP PO SCH (08:49)
[2018-02-19] MEDS: HumaLOG 300 UNITS/3 ML VIAL SC SCH ×4 (09:57→21:32)
--- NOTE | 2018-02-19 10:00 | PDOC.PN ---
- Subjective Encounter Start Date: 02/19/18 Encounter Start Time: 08:00 Patient seen and examined. No new complaints. No overnight events - Objective Resuscitation Status: Resuscitation Status FULL:Full Resuscitation MAR Reviewed: Yes Vital Signs & Weight: Vital Signs (12 hours) Temp Pulse Resp BP Pulse Ox 02/19/18 07:39 98.2 F 87 21 H 130/62 95 02/19/18 03:45 98.9 F 88 12 125/61 91 L 02/18/18 23:22 99.8 F H 86 14 101/55 L 92 L Weight Weight 330 lb 9.6 oz I&O: 02/18/18 02/19/18 02/20/18 06:59 06:59 06:59 Intake Total 2717 6290 Output Total 1994 1999 Balance 723 4290 Result Diagrams: 02/19/18 04:42 02/19/18 04:42 Additional Labs: Accuchecks 02/19/18 02/18/18 02/18/18 05:58 20:12 16:38 POC Glucose 205 H 235 H 331 H 02/18/18 10:44 POC Glucose 355 H EKG Reviewed by me: Yes Phys Exam - Physical Examination Constitutional: NAD HEENT: PERRLA, moist MMs, sclera anicteric Neck: no JVD, supple Respiratory: no wheezing, no rales, no rhonchi Cardiovascular: RRR, no significant murmur, no rub Gastrointestinal: soft, non-tender, no distention, positive bowel sounds obesity+ Musculoskeletal: no edema, pulses present Neurological: non-focal, normal sensation, moves all 4 limbs Lymphatic: no nodes Psychiatric: normal affect, A&O x 3 Skin: no rash, normal turgor Dx/Plan (1) Acute worsening of stage 3 chronic kidney disease Code(s): N18.3 - CHRONIC KIDNEY DISEASE, STAGE 3 (MODERATE) Status: Acute (2) Complicated UTI (urinary tract infection) Code(s): N39.0 - URINARY TRACT INFECTION, SITE NOT SPECIFIED Status: Acute (3) Lactic acidosis Code(s): E87.2 - ACIDOSIS Status: Acute (4) Sepsis Code(s): A41.9 - SEPSIS, UNSPECIFIED ORGANISM Status: Acute (5) Thrombocytopenia Code(s): D69.6 - THROMBOCYTOPENIA, UNSPECIFIED Status: Acute (6) Diabetes type 2, controlled Code(s): E11.9 - TYPE 2 DIABETES MELLITUS WITHOUT COMPLICATIONS Status: Chronic (7) Hypertension Code(s): I10 - ESSENTIAL (PRIMARY) HYPERTENSION Status: Chronic (8) Macrocytic anemia Code(s): D53.9 - NUTRITIONAL ANEMIA, UNSPECIFIED Status: Chronic (9) Morbid obesity with BMI of 40.0-44.9, adult Code(s): E66.01 - MORBID (SEVERE) OBESITY DUE TO EXCESS CALORIES; Z68.41 - BODY MASS INDEX (BMI) 40.0-44.9, ADULT Status: Chronic (10) [place] on CPAP Code(s): G47.33 - OBSTRUCTIVE SLEEP APNEA (ADULT) (PEDIATRIC); Z99.89 - DEPENDENCE ON OTHER ENABLING MACHINES AND DEVICES Status: Chronic - Plan cont current plan of care, continue antibiotics * DC IVF * DC Vancomycin, cefepime * based on culture will change to monotherapy with levaquin * urology to decide about procedure to remove stent * will observe one more day * if afebrile and do well, will consider discharge tomorrow if urology ok * medication reviewed as below * symptomatic treatment. Review of Systems - Review of Systems Eyes: negative: Pain, Vision Change, Conjunctivae Inflammation, Eyelid Inflammation, Redness, Other ENT: negative: Ear Pain, Ear Discharge, Nose Pain, Nose Discharge, Nose Congestion, Mouth Pain, Mouth Swelling, Throat Pain, Throat Swelling, Other Respiratory: negative: Cough, Dry, Shortness of Breath, Hemoptysis, SOB with Excertion, Pleuritic Pain, Sputum, Wheezing Cardiovascular: negative: chest pain, palpitations, orthopnea, paroxysmal nocturnal dyspnea, edema, light headedness, other Gastrointestinal: negative: Nausea, Vomiting, Abdominal Pain, Diarrhea, Constipation, Melena, Hematochezia, Other Genitourinary: negative: Dysuria, Frequency, Incontinence, Hematuria, Retention , Other Musculoskeletal: negative: Neck Pain, Shoulder Pain, Arm Pain, Back Pain, Hand Pain, Leg Pain, Foot Pain, Other - Medications/Allergies Allergies/Adverse Reactions: Allergies Allergy/AdvReac Type Severity Reaction Status Date / Time No Known Allergies Allergy Verified 02/17/18 13:52 Medications: Current Medications Acetaminophen (Tylenol) 650 mg PO Q4H PRN PRN Reason: Headache/Fever or Pain Last Admin: 02/18/18 16:09 Dose: 650 mg Hydrocodone Bitart/Acetaminophen ([place] 5/325) 1 tab PO Q4H PRN PRN Reason: Moderate Pain (4-6) Last Admin: 02/19/18 08:49 Dose: 1 tab Al Hydroxide/Mg Hydroxide (Maalox) 30 ml PO Q6H PRN PRN Reason: Heartburn or Indigestion Alogliptin Benzoate (Alogliptin) 25 mg PO QPM [facility] Last Admin: 02/18/18 21:56 Dose: 25 mg Artificial Tears (Tears Naturale) 0 drop EA EYE PRN PRN PRN Reason: Dry Eyes Clonazepam (Klonopin) 4 mg PO HS [facility] Last Admin: 02/18/18 21:56 Dose: 4 mg Cyanocobalamin (Vitamin B-12) 1,000 mcg PO DAILY [facility] Last Admin: 02/19/18 08:49 Dose: 1,000 mcg Dextrose/Water (Dextrose 50%) 25 gm SLOW IVP PRN PRN PRN Reason: Hypoglycemia Diphenhydramine HCl (Benadryl) 25 mg PO [facility] Last Admin: 02/18/18 21:56 Dose: 25 mg Enoxaparin Sodium (Lovenox) 30 mg SC 0900 [facility] Last Admin: 02/19/18 08:49 Dose: 30 mg Famotidine (Pepcid) 20 mg PO DAILY [facility] Last Admin: 02/19/18 08:49 Dose: 20 mg Folic Acid (Folvite) 1 mg PO DAILY [facility] Last Admin: 02/19/18 08:49 Dose: 1 mg Glucagon (Glucagon) 1 mg IM PRN PRN PRN Reason: Hypoglycemia Guaifenesin (Robitussin Sf) 200 mg PO Q4H PRN PRN Reason: Cough Hydralazine HCl (Apresoline) 10 mg SLOW IVP Q4H PRN PRN Reason: Systolic BP > 180 Sodium Chloride (Normal Saline 0.9%) 1,000 mls @ 125 mls/hr IV .Q8H [facility] Last Admin: 02/19/18 08:48 Dose: 1,000 mls Dextrose/Water (D5w) 1,000 mls @ 0 mls/hr IV .Q0M PRN PRN Reason: Hypoglycemia Levofloxacin 500 mg/ Device 100 mls @ 100 mls/hr IVPB Q24HR [facility] Last Admin: 02/19/18 08:48 Dose: 100 mls Insulin Human Lispro (Humalog) 0 units SC .MODERATE SLIDING SC PRN PRN Reason: Moderate Correctional Scale Last Admin: 02/18/18 16:57 Dose: 8 unit Insulin Human Lispro (Humalog) 0 units SC .BEDTIME SLIDING SC PRN PRN Reason: Bedtime Correctional Scale Last Admin: 02/18/18 22:03 Dose: 2 unit Insulin Human Lispro (Humalog) [address] [facility] Last Admin: 02/18/18 21:57 Dose: 10 unit Loperamide HCl (Imodium) 2 mg PO PRN PRN PRN Reason: Diarrhea/Loose Stools Loratadine (Claritin) 10 mg PO DAILYPRN PRN PRN Reason: Sinus Symptoms Magnesium Hydroxide (Milk Of Magnesium) 30 ml PO DAILYPRN PRN PRN Reason: Constipation Mineral Oil/White Petrolatum (Eucerin Cream) 0 gm TOP BIDPRN PRN PRN Reason: Dry Skin Ondansetron HCl (Zofran Odt) 4 mg PO Q6H PRN PRN Reason: Nausea/Vomiting Ondansetron HCl (Zofran) 4 mg IVP Q6H PRN PRN Reason: Nausea/Vomiting Phenol (Chloraseptic [place] 180 Ml Bot) 0 ml PO PRN PRN PRN Reason: Sore Throat Rosuvastatin Calcium (Crestor) 5 mg PO [facility] Last Admin: 02/18/18 21:56 Dose: 5 mg Saccharomyces Boulardii (Florastor) 250 mg PO DAILY [facility] Last Admin: 02/19/18 08:49 Dose: 250 mg Senna (Senokot) 2 tab PO HSPRN PRN PRN Reason: Constipation Sodium Chloride ([place] Nasal [place] 0.65%) 0 ml EA NARE QIDPRN PRN PRN Reason: Nasal Congestion Sodium Chloride (Flush - Normal Saline) 10 ml IVF Q12HR [facility] Last Admin: 02/18/18 22:29 Dose: Not Given Sodium Chloride (Flush - Normal Saline) 10 ml IVF PRN PRN PRN Reason: Saline Flush Tamsulosin HCl (Flomax) 0.4 mg PO DAILY [facility] Last Admin: 02/19/18 08:49 Dose: 0.4 mg Zolpidem Tartrate (Ambien) 5 mg PO HSPRN PRN PRN Reason: Insomnia
[2018-02-19] MEDS: HumaLOG 300 UNITS/3 ML VIAL SC PRN ×2 (11:57→18:03)
--- NOTE | 2018-02-19 21:29 | CON ---
DATE OF CONSULTATION: 02/19/2018 INITIAL REASON FOR CONSULTATION: 1. Apparent urosepsis with 8.2 mm left lower pole renal stone with indwelling stent. 2. Status post left extracorporeal shock wave lithotripsy on 02/08/2018. HISTORY OF PRESENT ILLNESS: Mr. 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 The patient underwent extracorporeal shock wave lithotripsy for a calculus in the left lower pole on 02/08/[address] Gilbert Marsh. He underwent previous stent placement on 2017. The patient following his extracorporeal shock wave lithotripsy did well for a while, but subs equently presented to Emergency Department with appearance of sepsis. The patient had a positive uri ne culture, which in the interim has grown out from the 02/17/2018 culture Klebsiella pneumoniae. Th e patient's organism is relatively pansensitive and he has been treated appropriately on IV antibioti cs. He is doing a lot better. Today, his only complaints are that of the string on his stent bother ing him. PHYSICAL EXAMINATION: GENERAL: This is a pleasant, heavy-set white male in no apparent distress. VITAL SIGNS: Temperature 98.8, the patient is afebrile; pulse 89; respirations 18; blood pressure is 132/55. HEAD, EYES, EARS, NOSE, AND THROAT: Extraocular movements are intact. Sclerae are anicteric. Oroph arynx is clear. NECK: Supple. LUNGS: Clear to auscultation bilaterally. CARDIAC: Regular rate and rhythm without murmur, rub, or gallop. Telemetry monitoring shows him to be in sinus rhythm at the present time. ABDOMEN: Soft, obese, and nontender. BACK: There is minimal left-sided flank discomfort. GENITOURINARY: The patient is voiding on his own and without difficulty. LABORATORY DATA: 02/17/2018 urine culture grows out Klebsiella pneumoniae, which is essentially pans ensitive. ASSESSMENT AND PLAN: 1. The patient is doing well. ID results from the culture suggested that he would be appropriately covered on any of a number of oral antibiotics Cefzil, Omnicef, Levaquin, or Bactrim are all reasonab le choices. 2. Kidney stone. The patient's kidney stone still will need disposition (00:00) on 02/17/2018 study demonstrates some residual stone measuring up to 8.2 mm in the left lower pole area, may requi re secondary treatment. Decision making and plans would be between Dr. Marsh and the patient in the future time point. Total of over 35 minutes of consultation and assessment time was spent in evaluation and assessment o f this patient today.
[2018-02-19] MEDS: Rosuvastatin 5 MG TAB PO SCH (21:31)
[2018-02-19] MEDS: diphenhydrAMINE 25 MG CAP PO SCH (21:31)
[2018-02-19] MEDS: Alogliptin 25 MG TAB PO SCH (21:31)
[2018-02-19] MEDS: clonazePAM 1 MG TAB PO SCH (21:31)
[2018-02-20 05:38] LABS: #Eosinphils 0.3 thou/uL (0.0-0.7); #Lymphocytes 0.6 thou/uL (1.20-3.40); #Monocytes 0.6 thou/uL (0.11-0.59); #Neutrophils 4.7 thou/uL (1.40-6.50); %Basophils 0.2 % (0.0-1.0); %Eosinophils 4.5 % (0.0-10.0); %Lymphocytes 10.3 % (21.0-51.0); %Monocytes 9.6 % (0.0-10.0); %Neutrophils 75.5 % (42.0-75.0); Hemoglobin 10.4 g/dL (14.0-18.0); Mean Corpuscular HGB CONC 33.5 g/dL (32.0-36.0); Mean Corpuscular Hemoglobin 34.7 pg (27.0-31.0); Mean Platelet Volume 7.3 fL (7.4-10.4); Platelet Count 129 thou/uL (130-400); RBC Distribution Width 11.5 % (11.5-14.5); Red Blood Cell (RBC) Count 2.99 mill/uL (4.70-6.10); White Blood Cell (WBC) Count 6.2 thou/uL (4.8-10.8)
[2018-02-20 05:48] LABS: Anion Gap 10 mmol/L (10-20); BUN (Urea Nitrogen) 27 mg/dL (8.4-25.7); Calc. Creatinine Clearance 81 mL/min (70-130); Calcium 8.2 mg/dL (7.8-10.44); Carbon Dioxide 21 mmol/L (22-29); Chloride 107 mmol/L (98-107); Estimated GFR-MDRD 33; Glucose 255 mg/dL (70-105); Potassium 4.1 mmol/L (3.5-5.1); Sodium 134 mmol/L (136-145)
[2018-02-20] MEDS: HumaLOG 300 UNITS/3 ML VIAL SC PRN (08:40)
[2018-02-20] MEDS: HumaLOG 300 UNITS/3 ML VIAL SC SCH ×2 (08:40→11:28)
[2018-02-20] MEDS: Folic Acid 1 MG TAB PO SCH (08:41)
[2018-02-20] MEDS: Tamsulosin HCl 0.4 MG CAP PO SCH (08:41)
[2018-02-20] MEDS: Cyanocobalamin (Vitamin B-12) 1,000 MCG TAB PO SCH (08:41)
[2018-02-20] MEDS: Famotidine 20 MG TAB PO SCH (08:41)
[2018-02-20] MEDS: Saccharomyces boulardii 250 MG CAP PO SCH (08:41)
[2018-02-20] MEDS: Enoxaparin Sodium 30 MG/0.3 ML SYRINGE SC SCH (08:45)
--- NOTE | 2018-02-20 10:04 | PDOC.PN ---
- Subjective Encounter Start Date: 02/20/18 Encounter Start Time: 07:40 Patient seen and examined. No new complaints. No overnight events - Objective Resuscitation Status: Resuscitation Status FULL:Full Resuscitation MAR Reviewed: Yes Vital Signs & Weight: Vital Signs (12 hours) Temp Pulse Resp BP BP Pulse Ox 02/20/18 07:22 97.9 F 83 22 H 133/71 94 L 02/20/18 04:10 99.0 F 92 20 117/56 L 95 Weight Weight 333 lb 8 oz I&O: 02/19/18 02/20/18 02/21/18 06:59 06:59 06:59 Intake Total 6290 4120 Output Total 1999 2049 Balance 4289 2069 Result Diagrams: 02/20/18 04:42 02/20/18 04:42 Additional Labs: Accuchecks 02/20/18 02/19/18 02/19/18 05:39 20:26 17:21 POC Glucose 266 H 258 H 248 H 02/19/18 11:08 POC Glucose 271 H EKG Reviewed by me: Yes (nsr) Phys Exam - Physical Examination Constitutional: NAD HEENT: PERRLA, moist MMs, sclera anicteric Neck: no JVD, supple Respiratory: no wheezing, no rales, no rhonchi Cardiovascular: RRR, no significant murmur, no rub Gastrointestinal: soft, non-tender, no distention, positive bowel sounds Musculoskeletal: no edema, pulses present Neurological: non-focal, normal sensation, moves all 4 limbs Lymphatic: no nodes Psychiatric: normal affect, A&O x 3 Skin: no rash, normal turgor Dx/Plan (1) Acute worsening of stage 3 chronic kidney disease Code(s): N18.3 - CHRONIC KIDNEY DISEASE, STAGE 3 (MODERATE) Status: Acute (2) Complicated UTI (urinary tract infection) Code(s): N39.0 - URINARY TRACT INFECTION, SITE NOT SPECIFIED Status: Acute (3) Lactic acidosis Code(s): E87.2 - ACIDOSIS Status: Acute (4) Sepsis Code(s): A41.9 - SEPSIS, UNSPECIFIED ORGANISM Status: Acute (5) Thrombocytopenia Code(s): D69.6 - THROMBOCYTOPENIA, UNSPECIFIED Status: Acute (6) Diabetes type 2, controlled Code(s): E11.9 - TYPE 2 DIABETES MELLITUS WITHOUT COMPLICATIONS Status: Chronic (7) Hypertension Code(s): I10 - ESSENTIAL (PRIMARY) HYPERTENSION Status: Chronic (8) Macrocytic anemia Code(s): D53.9 - NUTRITIONAL ANEMIA, UNSPECIFIED Status: Chronic (9) Morbid obesity with BMI of 40.0-44.9, adult Code(s): E66.01 - MORBID (SEVERE) OBESITY DUE TO EXCESS CALORIES; Z68.41 - Status: Chronic (10) [place] on CPAP Code(s): G47.33 - OBSTRUCTIVE SLEEP APNEA (ADULT) (PEDIATRIC); Z99.89 - Status: Chronic - Plan cont current plan of care, continue antibiotics * today urology to decide about stent removal * continue levaquin * medication reviewed as below * symptomatic treatment * discharge in 24 - 48 hours. Review of Systems - Review of Systems Constitutional: negative: fever, chills, sweats, weakness, malaise, other ENT: negative: Ear Pain, Ear Discharge, Nose Pain, Nose Discharge, Nose Congestion, Mouth Pain, Mouth Swelling, Throat Pain, Throat Swelling, Other Respiratory: negative: Cough, Dry, Shortness of Breath, Hemoptysis, SOB with Excertion, Pleuritic Pain, Sputum, Wheezing Cardiovascular: negative: chest pain, palpitations, orthopnea, paroxysmal nocturnal dyspnea, edema, light headedness, other Gastrointestinal: negative: Nausea, Vomiting, Abdominal Pain, Diarrhea, Constipation, Melena, Hematochezia, Other Genitourinary: negative: Dysuria, Frequency, Incontinence, Hematuria, Retention , Other Musculoskeletal: negative: Neck Pain, Shoulder Pain, Arm Pain, Back Pain, Hand Pain, Leg Pain, Foot Pain, Other Skin: negative: Rash, Lesions, Stephan, Bruising, Other - Medications/Allergies Allergies/Adverse Reactions: Allergies Allergy/AdvReac Type Severity Reaction Status Date / Time No Known Allergies Allergy Verified 02/17/18 13:52 Medications: Current Medications Acetaminophen (Tylenol) 650 mg PO Q4H PRN PRN Reason: Headache/Fever or Pain Last Admin: 02/18/18 16:09 Dose: 650 mg Hydrocodone Bitart/Acetaminophen (Regina 5/325) 1 tab PO Q4H PRN PRN Reason: Moderate Pain (4-6) Last Admin: 02/19/18 21:30 Dose: 1 tab Al Hydroxide/Mg Hydroxide (Maalox) 30 ml PO Q6H PRN PRN Reason: Heartburn or Indigestion Alogliptin Benzoate (Alogliptin) 25 mg PO QPM [facility] Last Admin: 02/19/18 21:31 Dose: 25 mg Artificial Tears (Tears Naturale) 0 drop EA EYE PRN PRN PRN Reason: Dry Eyes Clonazepam (Klonopin) 4 mg PO HS [facility] Last Admin: 02/19/18 21:31 Dose: 4 mg Cyanocobalamin (Vitamin B-12) 1,000 mcg PO DAILY [facility] Last Admin: 02/20/18 08:41 Dose: 1,000 mcg Dextrose/Water (Dextrose 50%) 25 gm SLOW IVP PRN PRN PRN Reason: Hypoglycemia Diphenhydramine HCl (Benadryl) 25 mg PO HS [facility] Last Admin: 02/19/18 21:31 Dose: 25 mg Enoxaparin Sodium (Lovenox) 30 mg SC 0900 [facility] Last Admin: 02/20/18 08:45 Dose: 30 mg Famotidine (Pepcid) 20 mg PO DAILY [facility] Last Admin: 02/20/18 08:41 Dose: 20 mg Folic Acid (Folvite) 1 mg PO DAILY [facility] Last Admin: 02/20/18 08:41 Dose: 1 mg Glucagon (Glucagon) 1 mg IM PRN PRN PRN Reason: Hypoglycemia Guaifenesin (Robitussin Sf) 200 mg PO Q4H PRN PRN Reason: Cough Hydralazine HCl (Apresoline) 10 mg SLOW IVP Q4H PRN PRN Reason: Systolic BP > 180 Dextrose/Water (D5w) 1,000 mls @ 0 mls/hr IV .Q0M PRN PRN Reason: Hypoglycemia Levofloxacin 500 mg/ Device 100 mls @ 100 mls/hr IVPB Q24HR [facility] Last Admin: 02/20/18 08:41 Dose: 100 mls Insulin Human Lispro (Humalog) 0 units SC .MODERATE SLIDING SC PRN PRN Reason: Moderate Correctional Scale Last Admin: 02/20/18 08:40 Dose: 6 unit Insulin Human Lispro (Humalog) 0 units SC .BEDTIME SLIDING SC PRN PRN Reason: Bedtime Correctional Scale Last Admin: 02/18/18 22:03 Dose: 2 unit Insulin Human Lispro (Humalog) 10 units SC ACHS [facility] Last Admin: 02/20/18 08:40 Dose: 10 unit Loperamide HCl (Imodium) 2 mg PO PRN PRN PRN Reason: Diarrhea/Loose Stools Loratadine (Claritin) 10 mg PO DAILYPRN PRN PRN Reason: Sinus Symptoms Magnesium Hydroxide (Milk Of Magnesium) 30 ml PO DAILYPRN PRN PRN Reason: Constipation Mineral Oil/White Petrolatum (Eucerin Cream) 0 gm TOP BIDPRN PRN PRN Reason: Dry Skin Ondansetron HCl (Zofran Odt) 4 mg PO Q6H PRN PRN Reason: Nausea/Vomiting Last Admin: 02/19/18 21:29 Dose: 4 mg Ondansetron HCl (Zofran) 4 mg IVP Q6H PRN PRN Reason: Nausea/Vomiting Phenol (Chloraseptic [place] 180 Ml Bot) 0 ml PO PRN PRN PRN Reason: Sore Throat Rosuvastatin Calcium (Crestor) 5 mg PO [facility] Last Admin: 02/19/18 21:31 Dose: 5 mg Saccharomyces Boulardii (Florastor) 250 mg PO DAILY [facility] Last Admin: 02/20/18 08:41 Dose: 250 mg Senna (Senokot) 2 tab PO HSPRN PRN PRN Reason: Constipation Sodium Chloride ([place] Nasal [place] 0.65%) 0 ml EA NARE QIDPRN PRN PRN Reason: Nasal Congestion Sodium Chloride (Flush - Normal Saline) 10 ml IVF Q12HR [facility] Last Admin: 02/20/18 08:40 Dose: 10 ml Sodium Chloride (Flush - Normal Saline) 10 ml IVF PRN PRN PRN Reason: Saline Flush Tamsulosin HCl (Flomax) 0.4 mg PO DAILY [facility] Last Admin: 02/20/18 08:41 Dose: 0.4 mg Zolpidem Tartrate (Ambien) 5 mg PO HSPRN PRN PRN Reason: Insomnia
--- NOTE | 2018-02-20 12:54 | DIS ---
DATE OF ADMISSION: 02/17/2018 DATE OF DISCHARGE: 02/20/2018 PRIMARY CARE PHYSICIAN: Irma call admission. DISCHARGE DISPOSITION: Home. PRIMARY DISCHARGE DIAGNOSES: Acute on chronic kidney failure; baseline chronic kidney disease, stage 3; complicated urinary tract infection; lactic acidosis; sepsis with acute organ dysfunction; thromb ocytopenia. SECONDARY DISCHARGE DIAGNOSES: Hypertension; macrocytic anemia; morbid obesity with BMI 40; obstruct [place] sleep apnea, on CPAP; diabetes, type 2; hypertension. PRIMARY PROCEDURE/OPERATION: None. RADIOLOGICAL INVESTIGATION: Chest x-ray, abdomen and pelvis CT scan. SIGNIFICANT LABORATORY DATA: Hemoglobin 10.4, MCV 104. Sodium 134, creatinine 2.06. Urinalysis sug gestive of UTI. Urine culture grew Klebsiella, blood culture negative. DISCHARGE MEDICATIONS: New medication: Cipro 250 mg p.o. b.i.d. for 10 days. The patient will cont inue all his previous medications, Tylenol #3 one or two tablets q.6 hourly p.r.n., cetirizine 10 mg p.o. daily, clonazepam 4 mg p.o. at bedtime, Benadryl 25 mg p.o. at bedtime, NovoLog insulin as per i nsulin pump, Tradjenta 5 mg p.o. daily, losartan 25 mg p.o. daily, multivitamin 1 tablet p.o. daily, potassium chloride 10 mEq p.o. b.i.d., Crestor 5 mg p.o. at bedtime, Flomax 0.4 mg p.o. daily. CONTRAINDICATIONS: None. CODE STATUS: FULL CODE. INPATIENT CONSULTANTS: Dr. Gilbert Marsh was consulted while in hospital. TEST RESULTS PENDING ON DISCHARGE: None. ALLERGIES: No known drug allergy. DISCHARGE PLAN: Post hospital, the patient will follow up with Dr. Gilbert Marsh as instructed. HOSPITAL COURSE: The patient is a 62-year-old male, who has underlying history of nephrolithiasis. He had recently extracorporeal shock wave lithotripsy therapy and stent placement. Subsequently, wit hin a week, the patient came back to emergency room with fever, chills, nausea, vomiting. He had acu te on chronic kidney failure. He had a urinary tract infection. He was having sepsis with acute org an dysfunction criteria. We admitted him to telemetry floor. We treated him with cefepime, Levaquin , and vancomycin initially. Subsequently, we changed to Cipro based on culture and sensitivity resul t. Urology cleared him for discharge. The patient is afebrile while in hospital. He is tolerating p.o. well, ambulatory, and hemodynamically stable. The patient is seen and examined at bedside today. Please see my progress note from today for furthe r detail. The patient will make appointment with Dr. Gilbert Marsh after discharge.
[2018-02-20 13:33] VITALS: BP 107/55; TEMP 98
[2018-02-20] MEDS ORDERED: Cipro 250 MG TAB PO SCH (20:00)
== END 2018-02-20 14:05 | disposition home or self-care (01) | DRG 698 ==
LOC: ERS 07:50 → 2NO 11:16
PROVIDERS: ADMIT Internal Medicine; ATTEND Internal Medicine
DX: T83.592A Infection and inflammatory reaction due to indwelling ureteral stent, initial encounter (principal); A41.9 Sepsis, unspecified organism; R65.20 Severe sepsis without septic shock; E87.2 Acidosis; Z68.41 Body mass index [BMI] 40.0-44.9, adult; N18.4 Chronic kidney disease, stage 4 (severe); N17.9 Acute kidney failure, unspecified; N39.0 Urinary tract infection, site not specified; I12.9 Hypertensive chronic kidney disease with stage 1 through stage 4 chronic kidney disease, or unspecified chronic kidney disease; D69.6 Thrombocytopenia, unspecified; E11.22 Type 2 diabetes mellitus with diabetic chronic kidney disease; D53.9 Nutritional anemia, unspecified; D63.1 Anemia in chronic kidney disease; E66.01 Morbid (severe) obesity due to excess calories; G47.33 Obstructive sleep apnea (adult) (pediatric); Z99.89 Dependence on other enabling machines and devices; Z98.84 Bariatric surgery status; Z87.442 Personal history of urinary calculi; E78.5 Hyperlipidemia, unspecified; F41.9 Anxiety disorder, unspecified; F32.9 Major depressive disorder, single episode, unspecified; N20.0 Calculus of kidney
CPT/HCPCS: 36415; 36416; 71045; 74018; 74176; 80048; 80053; 80069; 80202; 81003; 81015; 83605; 85025; 87040; 87077; 87086; 87186; 93005; 94760; 96361; 96365; 96375; A4216; J0692; J0696; J1650; J1956; J3370; J7050; Q0162

== ENCOUNTER 2018-03-01 06:18 | Day surgery (SDC) | payer BC ==
[2018-02-28 08:40] VITALS: BMI 38.3
[2018-03-01] MEDS ORDERED: Iothalamate Meglumine 60% 50 ML VIAL FS ONE (06:53)
[2018-03-01] MEDS ORDERED: Fentanyl 100 MCG/2 ML VIAL ONE (06:54)
[2018-03-01] MEDS ORDERED: Midazolam HCl 2 mg/2 ml Vial ONE (07:21)
[2018-03-01] MEDS ORDERED: Levofloxacin 500 mg/D5W 100 ml Premix Bag ONE (07:40)
--- NOTE | 2018-03-01 09:50 | OP ---
DATE OF PROCEDURE: 03/01/2018 PREOPERATIVE DIAGNOSES: Left lower pole renal stone and left ureteral stent. POSTOPERATIVE DIAGNOSES: Left lower pole renal stone and left ureteral stent. PROCEDURE PERFORMED: Cysto, discontinue left stent, placement of left open-ended ureteral catheter. Left retrograde pyelography with left ESWL. SURGEON: Dr. Gilbert Marsh ANESTHETIC: General. ESTIMATED BLOOD LOSS: Not recorded. FINDINGS: The old stent had started to calcify, was removed intact. He has a 6-7 mm couple of stone fragments in the left lower pole. These are uric acid stones. They cannot be seen on a plain film, so he was treated by doing a retrograde study and outlining with contrast. A total of 2500 shocks w ere given at maximum KV level of 4-5. Did appear to fragment well and for this reason, a stent was n ot left at the end of the case. OPERATIVE TECHNIQUE: After obtaining written and verbal consent from the patient after receiving 250 mg of Levaquin IV piggyback he was taken to the operating suite. He was placed in the supine positi on on the treatment table. PlexiPulses were placed on his lower extremities and turned on. He was g iven a general anesthetic and oral intubation. He was then placed in the dorsal lithotomy position a nd sterilely prepped and draped. Cystoscopy was performed with a 22-[place] sheath. This was well julianne bricated and passed under direct vision through the male urethra and into the urinary bladder with ai d of a 30-degree lens and video camera and monitor. The bladder was filled and emptied a couple of t imes. The distal end of the double-J stent was grasped and brought out through the urethral meatus. A guidewire would not feed up across it so it was removed and discarded. A 5 [place] cathete r with a guidewire in it was placed into the left ureteral orifice and the wire was placed up the ure ter and then the open-ended catheter up to the level of what most likely is the renal pelvis. The wi re was removed and then we injected some contrast through this showing easily good visibility of the left lower pole stone. The open-ended catheter was left in. The scope was removed. A Nolasco cathete r was placed. A silk tie was used to secure the Nolasco catheter to the ureteral catheter and the uret eral catheter was kept hooked up to 60 mL of contrast. He was then returned to the supine position a nd he was positioned for shockwave lithotripsy. He was coupled with the lithotripter unit and then t he stone was placed in treatment focal point. Shockwave therapy was commenced at a slow rate and a l ow kV, after a couple 100 shocks, a 5 minute pause was given. The level was increased to 4, the rate was kept at 60 and then after another few 100 shocks increased the level to 5. Fluoroscopy was used intermittently and contrast was injected intermittently to document stone fragmentation and for posi tioning purposes. At the end of 2500 shocks, it appeared that the stone had fragmented very well, so the open-ended catheter was removed and no stent was left indwelling. The patient was awakened and extubated and taken by taliber to the recovery room.
[2018-03-01] MEDS ORDERED: PHENYLEPHRINE-NS 100 MCG/ML 10 ML SYRINGE ONE (17:29)
[2018-03-01] MEDS ORDERED: Ondansetron HCl/PF 4 MG/2 ML Vial ONE (17:29)
[2018-03-01] MEDS ORDERED: Lidocaine 1% PF 5 ML VIAL ONE (17:29)
[2018-03-01] MEDS ORDERED: Glycopyrrolate 0.2 MG/ML 5 ML SYRINGE ONE (17:29)
[2018-03-01] MEDS ORDERED: PROPOFOL 200 MG/20 ML VIAL ONE (17:29)
== END 2018-03-01 11:55 | disposition home or self-care (01) ==
LOC: SDC 06:18
PROVIDERS: ATTEND Urology
PROC: 0TF4XZZ Fragmentation in Left Kidney Pelvis, External Approach (ICD-10-PCS; principal; 2018-03-01)
PROC: 0T778DZ Dilation of Left Ureter with Intraluminal Device, Via Natural or Artificial Opening Endoscopic (ICD-10-PCS; principal; 2018-03-01)
DX: N20.0 Calculus of kidney (principal); E11.9 Type 2 diabetes mellitus without complications; I10 Essential (primary) hypertension; Z79.899 Other long term (current) drug therapy; Z79.84 Long term (current) use of oral hypoglycemic drugs
CPT/HCPCS: 36416; C1758; J1956; J2001; J2250; J2405; J2704; J3010; Q9961

== ENCOUNTER 2019-01-09 19:33 | Emergency (ER) | payer BC ==
[2019-01-09] MEDS ORDERED: HYDROcodone/Acetaminophen 10/325 mg Tablet ONE (20:12)
--- NOTE | 2019-01-09 20:33 | RAD ---
FOUR VIEWS OF THE LEFT KNEE: 01/09/19 COMPARISON: None. HISTORY: Injury, twisted ankle/knee, pain. FINDINGS: No displaced fracture or evidence of dislocation. Probable small nonspecific knee joint effusion. IMPRESSION: No acute fracture or dislocation. Small knee joint effusion. POS: JOSELINE
== END 2019-01-09 21:00 | disposition home or self-care (01) ==
LOC: ERS 19:33
DX: S83.92XA Sprain of unspecified site of left knee, initial encounter (principal); E11.22 Type 2 diabetes mellitus with diabetic chronic kidney disease; N18.9 Chronic kidney disease, unspecified; Z79.899 Other long term (current) drug therapy; X50.1XXA Overexertion from prolonged static or awkward postures, initial encounter

== ENCOUNTER 2019-03-01 15:12 | Outpatient (CLI) | payer BC ==
--- NOTE | 2019-03-01 16:49 | MRI ---
EXAM: Left knee MRI without contrast: HISTORY: Left knee pain COMPARISON: None FINDINGS: Multiplanar, multisequence MRI examination of the knees performed. No evidence for significant joint effusion. No evidence for significant articular cartilage loss Nonspecific superficial prepatellar and infrapatellar subcutaneous fat stranding. Medial meniscus: Fairly extensive irregular radial tear of the posterior horn and posterior root. Lateral meniscus: Unremarkable. Anterior cruciate ligament:Intact. Posterior cruciate ligament: Intact. Medial collateral ligament complex: Intact. Lateral collateral ligament complex: Intact. Quadriceps and patellar tendons: Intact. Extensor mechanism: Unremarkable. Abnormal marrow signal involving the medial tibial plateau evidence for a subchondral fracture, proba carlitos a stress-type fracture. IMPRESSION: Medial tibial plateau subchondral fracture, probably a stress type fracture. Fairly extensive irregular radial tear of the posterior horn and posterior root medial meniscus.
== END 2019-03-01 15:13 | disposition home or self-care (01) ==
LOC: BICMRI 15:12
PROVIDERS: ATTEND Orthopaedic Surgery
DX: M25.562 Pain in left knee (principal); S82.142A Displaced bicondylar fracture of left tibia, initial encounter for closed fracture; S83.242A Other tear of medial meniscus, current injury, left knee, initial encounter